=== PATIENT | male | born 1995 | race Two or more races ===

== ENCOUNTER 2018-08-07 10:06 | Emergency (ER) | payer SELFPAY ==
[~2018-08-07] VITALS: Ht 182.9 cm; Wt 127.5 kg
[2018-08-07 10:13] VITALS: BP 129/93
== END 2018-08-07 11:52 | disposition home or self-care (01) ==
LOC: ER 11:51
DX: H66.92 Otitis media, unspecified, left ear (principal)
CPT/HCPCS: 99283